=== PATIENT | female | born 1950 ===

== ENCOUNTER 2018-11-24 11:57 | Emergency (ER) | payer SELFPAY ==
[2018-11-24] MEDS ORDERED: FENTANYL CITR 100 MCG/2 ML ONE (12:46)
--- NOTE | 2018-11-24 13:51 | EDPHYS ---
Physician Documentation [facility] Name: Jayjay Olivo Age: 68 yrs Sex: Female : 1950 Arrival Date: 11/24/2018 Time: 12:04 Bed 4 Private MD: ED Physician Cecilio Eastman HPI: 11/24 12:28 This 68 yrs old Female presents to ER via EMS with complaints of Leg Pain, Hip Injury. snw 12:28 The patient presents with decreased range of motion, an injury, pain, tenderness. The snw complaints affect the right upper thigh and right quadriceps. Context: The problem was sustained at a relative's home, resulted from the patient falling, while walking, the patient is not able to bear weight, the patient is not able to ambulate, Problem is a result from a previous injury: No. Onset: The symptoms/episode began/occurred suddenly, just prior to arrival. Associated signs and symptoms: The patient has no apparent associated signs or symptoms. Severity of symptoms: At their worst the symptoms were mild. The patient has not experienced similar symptoms in the past. The patient has not recently seen a physician, pt visiting x 2 months from [facility]. Historical: - Allergies: 12:14 No Known Allergies; sg - Home Meds: 12:14 Metformin Oral [Active]; alendronate 70 mg oral tab 1 tab once wkly [Active]; Livogen Z sg [Active]; Clinidipine [Active]; Hydroxyzine Oral [Active]; - PMHx: 12:14 Anxiety; Diabetes - NIDDM; sg - PSHx: 12:14 None; sg - Immunization history:: Adult Immunizations up to date. - Immunization history: Last tetanus immunization: - up to date. - Social history:: Smoking status: Patient/guardian denies using tobacco. - Ebola Screening: : Patient negative for fever greater than or equal to 101.5 degrees Fahrenheit, and additional compatible Ebola Virus Disease symptoms Patient denies exposure to infectious person Patient denies travel to an Ebola-affected area in the 21 days before illness onset No symptoms or risks identified at this time. ROS: 12:27 Constitutional: Negative for fever, chills, and weight loss, Eyes: Negative for injury, snw pain, redness, and discharge, ENT: Negative for injury, pain, and discharge, Neck: Negative for injury, pain, and swelling, Cardiovascular: Negative for chest pain, palpitations, and edema, Respiratory: Negative for shortness of breath, cough, wheezing, and pleuritic chest pain, Abdomen/GI: Negative for abdominal pain, nausea, vomiting, diarrhea, and constipation, Back: Negative for injury and pain, : Negative for injury, bleeding, discharge, and swelling, Skin: Negative for injury, rash, and discoloration, Neuro: Negative for headache, weakness, numbness, tingling, and seizure. 12:27 MS/extremity: Positive for injury or acute deformity, decreased range of motion, pain, of the right hip and right leg. Exam: 12:27 Constitutional: This is a well developed, well nourished patient who is awake, alert, snw and in no acute distress. Head/Face: Normocephalic, atraumatic. Eyes: Pupils equal round and reactive to light, extra-ocular motions intact. Lids and lashes normal. Conjunctiva and sclera are non-icteric and not injected. Cornea within normal limits. Periorbital areas with no swelling, redness, or edema. ENT: Nares patent. No nasal discharge, no septal abnormalities noted. Tympanic membranes are normal and external auditory canals are clear. Oropharynx with no redness, swelling, or masses, exudates, or evidence of obstruction, uvula midline. Mucous membranes moist. Neck: Trachea midline, no thyromegaly or masses palpated, and no cervical lymphadenopathy. Supple, full range of motion without nuchal rigidity, or vertebral point tenderness. No Meningismus. Chest/axilla: Normal chest wall appearance and motion. Nontender with no deformity. No lesions are appreciated. Cardiovascular: Regular rate and rhythm with a normal S1 and S2. No gallops, murmurs, or rubs. Normal PMI, no JVD. No pulse deficits. Respiratory: Lungs have equal breath sounds bilaterally, clear to auscultation and percussion. No rales, rhonchi or wheezes noted. No increased work of breathing, no retractions or nasal flaring. Abdomen/GI: Soft, non-tender, with normal bowel sounds. No distension or tympany. No guarding or rebound. No evidence of tenderness throughout. Back: No spinal tenderness. No costovertebral tenderness. Full range of motion. Skin: Warm, dry with normal turgor. Normal color with no rashes, no lesions, and no evidence of cellulitis. Neuro: Awake and alert, GCS 15, oriented to person, place, time, and situation. Cranial nerves II-XII grossly intact. Motor strength 5/5 in all extremities. Sensory grossly intact. Cerebellar exam normal. Normal gait. Psych: Awake, alert, with orientation to person, place and time. Behavior, mood, and affect are within normal limits. 12:27 Musculoskeletal/extremity: Extremities: grossly normal except: noted in the right hip: decreased ROM, ROM: limited active range of motion due to pain, limited passive range of motion due to pain, in the right hip, Circulation is intact in all extremities. Sensation intact. Compartment Syndrome exam of affected extremity: is normal. 14:00 ECG was reviewed by the Attending Physician. [facility] Vital Signs: 12:05 BP 196 / 93; Pulse 70 MON; Resp 16; Temp 97.9; Pulse Ox 97% on R/A; Pain 7/10; sg 12:20 BP 184 / 90; Pulse 72; Resp 17; Temp 97.9; Pulse Ox 98% on R/A; Weight 88.45 kg; Pain sg 7/10; 13:05 BP 186 / 80; Pulse 69 MON; Resp 16 S; Pulse Ox 98% on R/A; Pain 7/10; sg 14:00 BP 188 / 80; Pulse 80; Resp 17; Pulse Ox 97% on R/A; sg 15:00 BP 166 / 74; Pulse 80; Resp 19; Pulse Ox 100% ; Pain 3/10; sg Watson Coma Score: 12:05 Eye Response: spontaneous(4). Verbal Response: oriented(5). Motor Response: obeys sg commands(6). Total: 15. 12:20 Eye Response: spontaneous(4). Verbal Response: oriented(5). Motor Response: obeys sg commands(6). Total: 15. 15:00 Eye Response: spontaneous(4). Verbal Response: oriented(5). Motor Response: obeys sg commands(6). Total: 15. Trauma Score (Adult): 12:05 Eye Response: spontaneous(1); Verbal Response: oriented(1); Motor Response: obeys sg commands(2); Systolic BP: > 89 mm Hg(4); Respiratory Rate: 10 to 29 per min(4); Watson Score: 15; Trauma Score: 12 12:20 Eye Response: spontaneous(1); Verbal Response: oriented(1); Motor Response: obeys sg commands(2); Systolic BP: > 89 mm Hg(4); Respiratory Rate: 10 to 29 per min(4); Watson Score: 15; Trauma Score: 12 15:00 Eye Response: spontaneous(1); Verbal Response: oriented(1); Motor Response: obeys sg commands(2); Systolic BP: > 89 mm Hg(4); Respiratory Rate: 10 to 29 per min(4); Hanny Score: 15; Trauma Score: 12 MDM: 12:15 Patient medically screened. [facility] 13:29 Data reviewed: vital signs, nurses notes. Data interpreted: Pulse oximetry: on room air snw is 97 %. Interpretation: normal. Counseling: I had a detailed discussion with the patient and/or guardian regarding: the historical points, exam findings, and any diagnostic results supporting the discharge/admit diagnosis, the presence of at least one elevated blood pressure reading (>120/80) during this emergency department visit, radiology results, no rodding is done at this facility. Pt family requests transfer to [facility]. Will attempt transfer. 13:42 Physician consultation: was called at 13:42, was contacted at 13:42, regarding snw regarding transfer, [facility] kindly accepts pt in transfer. 16:52 ED course: Dr. Eatsman present at bedside for conscious sedation to exchange current snw splint for a traction splint per EMS.. 11/24 12:55 Order name: CBC with Diff snw 11/24 12:55 Order name: Chem 7; Complete Time: 14:15 snw 11/24 12:18 Order name: Femur Right XRAY; Complete Time: 15:09 snw 11/24 12:18 Order name: Hip Right 2 View XRAY; Complete Time: 15:15 snw 11/24 12:55 Order name: TS; Complete Time: 15:09 snw 11/24 12:55 Order name: CBC with Automated Diff; Complete Time: 13:56 EDMS 11/24 12:54 Order name: XRAY Chest (1 view); Complete Time: 15:15 snw 11/24 12:55 Order name: EKG; Complete Time: 12:55 snw 11/24 12:55 Order name: EKG - Nurse/Tech; Complete Time: 13:54 snw 11/24 12:57 Order name: SL; Complete Time: 13:00 snw 11/24 13:25 Order name: Posterior Leg Splint; Complete Time: 14:27 snw 11/24 13:54 Order name: NPO; Complete Time: 13:54 sg 11/24 16:24 Order name: Conscious Sedation; Complete Time: 16:26 sg Administered Medications: 13:00 Drug: fentaNYL (PF) 25 mcg Route: IVP; Site: right antecubital; sg 16:15 Drug: Versed 2 mg Route: IVP; Site: right antecubital; sg 16:15 Drug: Ketamine 1 mg/kg Route: IVP; Site: right antecubital; sg Disposition: 11/25 08:11 Co-signature as Attending Physician, Cecilio Eastman MD I agree with the assessment and jana plan of care. Disposition: 11/24/18 13:50 Transfer ordered to Other Acute Care Facility. Diagnosis are Fall on same level from slipping, tripping and stumbling, Right mid-shaft over-riding femur fracure. - Reason for transfer: Higher level of care. - Accepting physician is Dr. Nixon Simon. - Condition is Stable. - Problem is new. - Symptoms are unchanged. Signatures: Dispatcher [employer] Jamshid Richardson, RN Cecilio Sparrow MD MD cha Therrien, Shelly, TRAY SERVER-C TRAY SERVER-Csnw Corrections: (The following items were deleted from the chart) 11/24 16:28 13:50 11/24/2018 13:50 Transfer ordered to Other Acute Care Facility. Diagnosis is Fall sg on same level from slipping, tripping and stumbling; Right mid-shaft over-riding femur fracure. Reason for transfer: Higher level of care. Accepting physician is Dr. Nixon Simon. Condition is Stable. Problem is new. Symptoms are unchanged. snw
--- NOTE | 2018-11-24 13:51 | ER ---
Nurse's Notes [facility] Name: Jayjay Olivo Age: 68 yrs Sex: Female : 1950 Arrival Date: 11/24/2018 Time: 12:04 Bed 4 Private MD: Diagnosis: Fall on same level from slipping, tripping and stumbling;Right mid-shaft over-riding femur fracure Presentation: 11/24 12:05 Presenting complaint: Trauma Alert. sg 12:05 Presenting complaint: EMS states: Fall from standing position, pt reports tripping over sg her own feet or something on the ground, no LOC no head injury reports per pt family. Care prior to arrival: Medication(s) given: Nubain 10 mg IVP IV initiated. 18 GA, in the right antecubital area. Mechanism of Injury: Fall from standing position. Trauma event details: Injury occurred in the [facility], Injury occurred: at home. Injury occurred: November 24, 2018. 12:05 Acuity: NAYELI 3 sg 12:05 Method Of Arrival: EMS: [facility] sg 12:15 Transition of care: patient was not received from another setting of care. Onset of sg symptoms was November 24, 2018. Risk Assessment: Do you want to hurt yourself or someone else? Patient reports no desire to harm self or others. Initial Sepsis Screen: Does the patient meet any 2 criteria? No. Patient's initial sepsis screen is negative. Does the patient have a suspected source of infection? No. Patient's initial sepsis screen is negative. Trauma Activation: Alert Physician: ED Physician; Name: ; Notified At: ; Arrived At: Physician: General Surgeon; Name: ; Notified At: ; Arrived At: Physician: Radiology; Name: ; Notified At: ; Arrived At: Physician: Respiratory; Name: ; Notified At: ; Arrived At: Physician: Lab; Name: ; Notified At: ; Arrived At: Historical: - Allergies: 12:14 No Known Allergies; sg - Home Meds: 12:14 Metformin Oral [Active]; alendronate 70 mg oral tab 1 tab once wkly [Active]; Livogen Z sg [Active]; Clinidipine [Active]; Hydroxyzine Oral [Active]; - PMHx: 12:14 Anxiety; Diabetes - NIDDM; sg - PSHx: 12:14 None; sg - Immunization history:: Adult Immunizations up to date. - Immunization history: Last tetanus immunization: - up to date. - Social history:: Smoking status: Patient/guardian denies using tobacco. - Ebola Screening: : Patient negative for fever greater than or equal to 101.5 degrees Fahrenheit, and additional compatible Ebola Virus Disease symptoms Patient denies exposure to infectious person Patient denies travel to an Ebola-affected area in the 21 days before illness onset No symptoms or risks identified at this time. Screenin:05 Abuse screen: Denies threats or abuse. Denies injuries from another. Tuberculosis sg screening: No symptoms or risk factors identified. 12:10 Nutritional screening: No deficits noted. Fall Risk Fall in past 12 months (25 points). sg No secondary diagnosis (0 pts). Gait- Normal/Bed Rest/Wheelchair (0 pts) Mental Status- Oriented to own ability (0 pts). Primary Survey: 12:05 NO uncontrolled hemorrhage observed. A: The patient is alert. Airway: patent, No sg supplemental oxygen in use on arrival. Oral cavity: clear, Trachea midline. Breathing/Chest: Respiratory pattern: regular, Respiratory effort: spontaneous, unlabored, Breath sounds: clear, bilaterally. Chest inspection: symmetrical rise and fall of the chest. Circulation: Heart tones present. Pulses: palpable right radial artery, right dorsalis pedis artery, left radial artery and left dorsalis pedis artery. Skin temperature: warm. Disability Alert. Exposure/Environment: All clothing and personal items were removed. Forensic evidence collection is not deemed to be indicated at this time. Items placed in patient belonging bag. There is no evidence of uncontrolled external bleeding. Obvious injury(ies) are noted at this time: Right Hip pain with Right Lower Extremity external rotation with shortening. 12:20 Reassessment Airway Airway Patent Oxygen No O2 Oral cavity Clear Trachea Midline sg Breathing/Chest Respiratory pattern Regular Respiratory effort Spontaneous Unlabored Breath sounds Clear Chest inspection Symmetrical. Secondary Survey: 12:05 HEENT: Head No injury/deformity Face No injury/deformity Eyes: No injury or deformity sg noted. Ears: clear Nose: clear to bilateral nares. Throat: No injury or deformity noted. Gastrointestinal: Abdomen is soft, non-distended, Palpation No deficit noted. : No signs and/or symptoms were reported regarding the genitourinary system. Musculoskeletal: Circulation, motion, and sensation intact. Range of motion: limited in right hip pt will not move the right hip. Assessment: 12:05 General: Appears uncomfortable, well groomed, well developed, well nourished, Behavior sg is calm, cooperative, appropriate for age. Pain: Complains of pain in right hip Quality of pain is described as aching, sharp, tender, with spasms. 13:05 Reassessment: Patient appears in no apparent distress at this time. Patient and/or sg family updated on plan of care and expected duration. Pain level reassessed. Patient is alert, oriented x 3, equal unlabored respirations, skin warm/dry/pink. Cardiovascular: Pulses are palpable in right radial artery, right posterior tibial artery, right dorsalis pedis artery, left radial artery, left posterior tibial artery and left dorsalis pedis artery. 13:05 Neuro: Cardiovascular: Patient's skin is warm and dry. Musculoskeletal: Capillary sg refill is brisk, in bilateral toes. 14:05 Cardiovascular: Patient's skin is warm and dry. Pulses are palpable in right radial sg artery, right posterior tibial artery, right dorsalis pedis artery, left radial artery, left posterior tibial artery and left dorsalis pedis artery. Musculoskeletal: Capillary refill is brisk, in bilateral toes. 15:05 Neuro:. Cardiovascular: Patient's skin is warm and dry. Pulses are palpable in right sg radial artery, right posterior tibial artery, right dorsalis pedis artery, left radial artery, left posterior tibial artery and left dorsalis pedis artery. Cardiovascular: Patient's skin is warm and dry. Pulses are palpable in right radial artery, right posterior tibial artery, right dorsalis pedis artery, left radial artery, left posterior tibial artery and left dorsalis pedis artery. Musculoskeletal: Capillary refill is brisk, in bilateral toes. Musculoskeletal: Capillary refill is brisk, in bilateral toes. 16:05 Reassessment: Patient appears in no apparent distress at this time. Patient is alert, sg oriented x 3, equal unlabored respirations, skin warm/dry/pink. Neuro: Level of Consciousness is awake, alert, obeys commands, Oriented to person, place, time, situation, Soaking Pits Supervisor are equal bilaterally. Respiratory: Airway is patent Respiratory effort is even, unlabored, Respiratory pattern is regular, symmetrical. Derm: Skin is pink, warm \T\ dry. Musculoskeletal: Capillary refill is brisk, in bilateral toes. Vital Signs: 12:05 BP 196 / 93; Pulse 70 MON; Resp 16; Temp 97.9; Pulse Ox 97% on R/A; Pain 7/10; sg 12:20 BP 184 / 90; Pulse 72; Resp 17; Temp 97.9; Pulse Ox 98% on R/A; Weight 88.45 kg; Pain sg 7/10; 13:05 BP 186 / 80; Pulse 69 MON; Resp 16 S; Pulse Ox 98% on R/A; Pain 7/10; sg 14:00 BP 188 / 80; Pulse 80; Resp 17; Pulse Ox 97% on R/A; sg 15:00 BP 166 / 74; Pulse 80; Resp 19; Pulse Ox 100% ; Pain 3/10; sg Midkiff Coma Score: 12:05 Eye Response: spontaneous(4). Verbal Response: oriented(5). Motor Response: obeys sg commands(6). Total: 15. 12:20 Eye Response: spontaneous(4). Verbal Response: oriented(5). Motor Response: obeys sg commands(6). Total: 15. 15:00 Eye Response: spontaneous(4). Verbal Response: oriented(5). Motor Response: obeys sg commands(6). Total: 15. Trauma Score (Adult): 12:05 Eye Response: spontaneous(1); Verbal Response: oriented(1); Motor Response: obeys sg commands(2); Systolic BP: > 89 mm Hg(4); Respiratory Rate: 10 to 29 per min(4); Hanny Score: 15; Trauma Score: 12 12:20 Eye Response: spontaneous(1); Verbal Response: oriented(1); Motor Response: obeys sg commands(2); Systolic BP: > 89 mm Hg(4); Respiratory Rate: 10 to 29 per min(4); Midkiff Score: 15; Trauma Score: 12 15:00 Eye Response: spontaneous(1); Verbal Response: oriented(1); Motor Response: obeys sg commands(2); Systolic BP: > 89 mm Hg(4); Respiratory Rate: 10 to 29 per min(4); Midkiff Score: 15; Trauma Score: 12 ED Course: 12:04 Patient arrived in ED. sg 12:05 Patient has correct armband on for positive identification. Bed in low position. Call sg light in reach. Side rails up X2. Adult w/ patient. 12:05 Patient maintains SpO2 saturation greater than 95% on room air. sg 12:09 Triage completed. sg 12:14 Malinda eTlles FNP-C is [facility]. snw 12:14 Cecilio Eastman MD is Attending Physician. snw 12:15 Arm band placed on. sg 12:15 Thermoregulation: warm blanket given to patient. sg 12:21 Jamshid Barnes, RN is Primary Nurse. sg 13:10 Femur Right XRAY In Process Unspecified. EDMS 13:10 Hip Right 2 View XRAY In Process Unspecified. EDMS 13:10 XRAY Chest (1 view) In Process Unspecified. EDMS 13:40 Initial lab(s) drawn, by Fela Tran student. dh3 13:48 T\T\S collected, blood band applied to patient. dh3 14:03 EKG done, by ED staff, reviewed by Malinda MEEHAN. dh3 14:30 posterior long leg splint applied by with the assistance of Noemy MONTEMAYOR, Fela Motley and myself. 14:30 Ty wrap to right hip, right knee and right ankle Orthoglass splint: Posterior long leg sg splint applied on right leg. 14:34 Patient transferred, IV remains in place. intact, No redness/swelling at site. sg Administered Medications: 13:00 Drug: fentaNYL (PF) 25 mcg Route: IVP; Site: right antecubital; sg 16:15 Drug: Versed 2 mg Route: IVP; Site: right antecubital; sg 16:15 Drug: Ketamine 1 mg/kg Route: IVP; Site: right antecubital; sg Intake: 14:35 PO: 0ml; Total: 0ml. sg Output: 14:35 Urine: 0ml; Total: 0ml. sg Outcome: 13:50 ER care complete, transfer ordered by . snw 14:35 Transferred Note: Report called to Estela RN, Yanet MONTEMAYOR sg 14:40 Condition: stable sg 14:40 Patient's length of stay in the Emergency Department was greater than 2 hours. awaiting transfer transportationPatient's length of stay extended due to 16:28 Patient left the ED. sg Signatures: Dispatcher [employer] Jamshid Richardson RN RN sg Malinda Telles, SLURRY MIXER-C SLURRY MIXER-Nidhi Kelsey Corrections: (The following items were deleted from the chart) 12:22 12:05 Care prior to arrival: IV initiated. 18 GA, in the right antecubital area, omari salcido
[2018-11-24 13:52] LABS: Absolute Lymphocytes (CBC) 0.7 K/uL (0.7-4.9); Absolute Monocytes 0.6 K/uL (0.1-1.3); Absolute Neutrophil 9.2 K/uL (1.8-8.0); Basophils % 0.6 % (0-1.3); Eosinophils % 4.2 % (0-4.4); Hematocrit 31.4 % (36.0-45.0); Lymphocytes % 6.4 % (15.3-44.8); Monocytes % 5.6 % (3.3-12.3); RBC Red Blood Cell Count 3.52 M/uL (3.86-4.86)
[2018-11-24 14:09] LABS: Potassium 3.8 mmol/L (3.5-5.1)
--- NOTE | 2018-11-24 15:08 | RAD REPORT ---
EXAM DESCRIPTION: RAD - Femur Right - 11/24/2018 1:12 pm CLINICAL HISTORY: Pain;Smash injury COMPARISON: Chest Single View dated 11/24/2018; Hip Right 2 View dated 11/24/2018 FINDINGS: Transverse fracture of the shaft of the mid femur is present with moderate overriding and angulation.
--- NOTE | 2018-11-24 15:10 | RAD REPORT ---
EXAM DESCRIPTION: RAD - Hip Right 2 View - 11/24/2018 1:11 pm CLINICAL HISTORY: PAIN Trauma, pain COMPARISON: <Comparisons> FINDINGS: Fracture involves the midshaft of the femur with moderate angulation and overriding.
--- NOTE | 2018-11-24 15:12 | RAD REPORT ---
EXAM DESCRIPTION: RAD - Chest Single View - 11/24/2018 1:12 pm CLINICAL HISTORY: hip fx Chest pain. COMPARISON: No comparisons FINDINGS: Portable technique limits examination quality. The lungs are grossly clear. The heart is normal in size. No displaced fractures. IMPRESSION: No acute intrathoracic process suspected.
[2018-11-24] MEDS ORDERED: KETAMINE HCL 500 MG/5 ML VIAL ONE (16:11)
[2018-11-24] MEDS ORDERED: MIDAZOLAM HCL 2 MG/2 ML INJ ONE (16:11)
--- NOTE | 2018-11-26 11:36 | EKG ---
Test Date: 2018-11-24 Test Time: 13:53:41 Deputy Building Guard: ROBERT MEASUREMENT RESULTS: Intervals: Rate: 73 PA: 152 QRSD: 74 QT: 384 QTc: 423 [place]: P: 72 PA: 152 QRS: 47 T: 23 INTERPRETIVE STATEMENTS: Normal sinus rhythm Possible Left atrial enlargement Borderline ECG No previous ECG available for comparison Electronically Signed On 11-25-18 10:51:38 CDT by Ajay Amaya
== END 2018-11-24 16:28 ==
LOC: ER 11:57
DX: S72.391A Other fracture of shaft of right femur, initial encounter for closed fracture (principal); W01.0XXA Fall on same level from slipping, tripping and stumbling without subsequent striking against object, initial encounter; Y93.01 Activity, walking, marching and hiking; Y92.019 Unspecified place in single-family (private) house as the place of occurrence of the external cause; F41.9 Anxiety disorder, unspecified; E11.9 Type 2 diabetes mellitus without complications; Z79.84 Long term (current) use of oral hypoglycemic drugs
CPT/HCPCS: 36415; 71045; 80048; 85025; 86850; 86900; 86901; 93005; 96374; 96375; 99285; J2250; J3010